=== PATIENT | female | born 1995 | race Caucasian/White ===

== ENCOUNTER 2016-11-11 21:23 | Emergency (ER) | payer SELFPAY ==
[~2016-11-11] VITALS: Ht 162.6 cm; Wt 63.5 kg
[2016-11-11] MEDS ORDERED: PROAIR HFA8.5 GM INH (21:43)
== END 2016-11-12 00:04 | disposition home or self-care (01) ==
LOC: ED 21:23
DX: T78.40XA Allergy, unspecified, initial encounter (principal); J45.909 Unspecified asthma, uncomplicated
CPT/HCPCS: 99282; Q0163